=== PATIENT | female | born 1955 | race Two or more races ===

== ENCOUNTER 2017-12-17 07:10 | Outpatient (CLI) | payer OTHER | END 2017-12-17 07:20 | disposition home or self-care (01) | LOC: MAMO-SONO 07:10 | DX: Z12.31 Encounter for screening mammogram for malignant neoplasm of breast (principal); R92.1 Mammographic calcification found on diagnostic imaging of breast ==

== ENCOUNTER → 2018-06-19 | Outpatient (CLI) | payer OTHER | END | disposition home or self-care (01) | LOC: SONOGRAMA 09:26 → MAMO-SONO 10:15 | DX: N63.11 Unspecified lump in the right breast, upper outer quadrant (principal) ==

== ENCOUNTER 2019-01-01 07:21 | Outpatient (CLI) | payer OTHER | END 2019-01-01 07:26 | disposition home or self-care (01) | LOC: MAMO-SONO 07:21 | DX: Z12.31 Encounter for screening mammogram for malignant neoplasm of breast (principal); Z87.898 Personal history of other specified conditions; N60.11 Diffuse cystic mastopathy of right breast ==

== ENCOUNTER 2019-11-01 11:40 | Outpatient (CLI) | payer OTHER | END 2019-11-01 11:52 | disposition home or self-care (01) | LOC: NUCLEAR 11:40 | DX: M81.0 Age-related osteoporosis without current pathological fracture (principal); Z13.820 Encounter for screening for osteoporosis ==

== ENCOUNTER 2019-11-01 12:23 | Outpatient (CLI) | payer OTHER | END 2019-11-01 12:31 | disposition home or self-care (01) | LOC: RAD 12:23 | PROVIDERS: ATTEND Physical Medicine & Rehabilitation | DX: M54.2 Cervicalgia (principal) ==

== ENCOUNTER → 2021-10-24 12:48 | Outpatient (CLI) | payer OTHER | END | disposition home or self-care (01) | LOC: NUCLEAR 12:48 | PROVIDERS: ATTEND Family Medicine | DX: M81.0 Age-related osteoporosis without current pathological fracture (principal) ==

== ENCOUNTER 2023-03-23 11:16 | Emergency (ER) | payer OTHER ==
[~2023-03-23] VITALS: Ht 175.3 cm; Wt 86.6 kg
[2023-03-23] MEDS ORDERED: ECOTRIN81 MG PO (12:05)
[2023-03-23] MEDS ORDERED: RAZADYNE ER16 MG PO (12:05)
[2023-03-23] MEDS ORDERED: ATACAND16 MG PO (12:05)
[2023-03-23] MEDS ORDERED: CRESTOR5 MG PO (12:06)
[2023-03-23] MEDS ORDERED: PERCOGESIC EXT1 EACH PO (13:54)
== END 2023-03-23 14:19 | disposition home or self-care (01) ==
LOC: ER 11:17
DX: S52.571A Other intraarticular fracture of lower end of right radius, initial encounter for closed fracture (principal); W18.39XA Other fall on same level, initial encounter; Y93.89 Activity, other specified; Y92.018 Other place in single-family (private) house as the place of occurrence of the external cause; Y99.9 Unspecified external cause status; M19.041 Primary osteoarthritis, right hand

== ENCOUNTER 2023-03-31 05:10 | Day surgery (SDC) | payer OTHER ==
[2023-03-27 16:06] LABS: HEMATOCRIT 40.9 % (36.0-45.00); HEMOGLOBIN 13.8 g/dL (12.0-15.00); MEAN CELL VOLUME 95.9 fL (80.00-100.00); MEAN CORPUSCULAR HEMOGLOBIN 32.3 pg (27.00-32.0); MEAN CORPUSCULAR HGB CONC 33.6 g/dl (32.0-36.0); PLATELET COUNT 229 K/uL (150-450); RED BLOOD COUNT 4.26 M/uL (4.00-6.00); RED CELL DISTRIBUTION WIDTH 13.8 % (11.5-14.5)
[2023-03-27 16:13] LABS: PH,URINE 5.5 (5.0-8.0); URINE APPEARANCE Clear; URINE BILIRRUBIN Negative (NEGATIVE); URINE BLOOD Negative; URINE COLOR Yellow; URINE GLUCOSE Negative (NEGATIVE); URINE LEUKOCYTE Trace; URINE NITRATE Negative; URINE PROTEIN Negative (NEGATIVE); URINE UROBILINOGEN 0.2 E.U./dl
[2023-03-27 16:17] LABS: URINE BACTERIA 41.5 uL (0.0-1933); URINE EPITHELIAL CELLS 4.4 uL (0.0-38.8)
[2023-03-27 16:38] LABS: ALBUMIN 4.1 gm/dL (3.4-5.0); BILIRUBIN TOTAL 0.55 mg/dL (0.3-1.2); CALCIUM 9.5 mg/dL (8.5-10.1); CREATININE SERUM 0.57 mg/dL (0.55-1.02); GFR 105.48; GLOBULINA 3.4 G/DL (2.4-3.5); POTASSIUM 4.81 mEq/L (3.5-5.1); TOTAL PROTEIN 7.5 gm/dL (6.4-8.2)
[2023-03-27 16:55] LABS: INR 0.98; PARTIAL THROMBOPLASTIN TIME 29.6 SECONDS (22.0-34.0); PROTHROMBIN TIME 10.3 SECONDS (9.0-11.5)
[2023-03-27 17:04] LABS: COL ADP 87 SECONDS (56-102); COL EPI 201 SECONDS (82-175)
[~2023-03-31] VITALS: Ht 175.3 cm; Wt 86.6 kg
[~2023-03-31 05:10] MED LIST: ATACAND16 MG PO; CRESTOR5 MG PO; ECOTRIN81 MG PO; PERCOGESIC EXT1 EACH PO; RAZADYNE ER16 MG PO
[2023-03-31] MEDS ORDERED: BUPIVACAINE HCL/PF 0.5% 30ML ML ONE (07:15)
[2023-03-31] MEDS ORDERED: CEFAZOLIN SODIUM 1,000 MG VIAL ONE (07:16)
[2023-03-31] MEDS ORDERED: CEFAZOLIN SODIUM 1,000 MG VIAL IV ONE (08:15)
[2023-03-31] MEDS ORDERED: BUPIVACAINE HCL/PF 0.5% 30ML ML IJ ONE (08:15)
[2023-03-31] MEDS ORDERED: ISOPROPYL ALCOHOL 30 ML OUNCE TOP ONE (08:15)
== END 2023-03-31 13:45 | disposition home or self-care (01) ==
LOC: CIR.AMB 05:10
PROVIDERS: ATTEND Orthopaedic Surgery
DX: S52.571A Other intraarticular fracture of lower end of right radius, initial encounter for closed fracture (principal); Z20.822 Contact with and (suspected) exposure to COVID-19; I10 Essential (primary) hypertension
CPT/HCPCS: 25609; L8699

== ENCOUNTER 2023-05-01 08:06 | Outpatient (CLI) | payer OTHER | END 2023-05-01 08:12 | disposition home or self-care (01) | LOC: RAD 08:06 | PROVIDERS: ATTEND Orthopaedic Surgery | DX: S52.571D Other intraarticular fracture of lower end of right radius, subsequent encounter for closed fracture with routine healing (principal); M25.551 Pain in right hip; M25.552 Pain in left hip ==

== ENCOUNTER 2023-05-07 11:59 | Outpatient (CLI) | payer OTHER | END 2023-05-07 12:03 | disposition home or self-care (01) | LOC: RAD 11:59 | DX: R53.83 Other fatigue (principal) ==

== ENCOUNTER 2023-05-12 08:00 | Outpatient (CLI) | payer OTHER ==
[2023-05-12 09:46] LABS: ALBUMIN 3.9 gm/dL (3.4-5.0); BILIRUBIN TOTAL 0.58 mg/dL (0.3-1.2); CALCIUM 9.5 mg/dL (8.5-10.1); CREATININE SERUM 0.56 mg/dL (0.55-1.02); GFR 107.34; GLOBULINA 3.1 G/DL (2.4-3.5); MAGNESIUM 2.5 mg/dL (1.8-2.4); PHOSPHOROUS 3.3 mg/dL (2.5-4.9); POTASSIUM 4.98 mEq/L (3.5-5.1)
== END 2023-05-12 08:01 | disposition home or self-care (01) ==
LOC: LAB 08:00
PROVIDERS: ATTEND Orthopaedic Surgery
DX: E55.9 Vitamin D deficiency, unspecified (principal); M85.9 Disorder of bone density and structure, unspecified; E56.1 Deficiency of vitamin K; E21.3 Hyperparathyroidism, unspecified; E88.89 Other specified metabolic disorders; M81.8 Other osteoporosis without current pathological fracture

== ENCOUNTER 2023-10-07 11:52 | Outpatient (CLI) | payer OTHER | END 2023-10-07 11:58 | disposition home or self-care (01) | LOC: RAD 11:52 | DX: M54.50 Low back pain, unspecified (principal) ==

== ENCOUNTER 2023-11-05 13:20 | Outpatient (CLI) | payer OTHER | END 2023-11-05 13:21 | disposition home or self-care (01) | LOC: NUCLEAR 13:20 | PROVIDERS: ATTEND General Practice | DX: M81.0 Age-related osteoporosis without current pathological fracture (principal) ==

== ENCOUNTER 2023-12-12 11:07 | Outpatient (CLI) | payer OTHER | END 2023-12-12 11:15 | disposition home or self-care (01) | LOC: RAD 11:07 | PROVIDERS: ATTEND Specialist | DX: R05.9 Cough, unspecified (principal) ==

== ENCOUNTER 2024-02-09 09:11 | Inpatient (IN) | payer OTHER ==
[~2024-02-09] VITALS: Ht 175.3 cm; Wt 70.3 kg
--- NOTE | 2024-02-09 09:24 | NUR ---
PACIENTE FEMENINA ALERTA Y ORIENTADA X3, REFIERE VIDHYA TOS HACE VARIOS SUAZO.
--- NOTE | 2024-02-09 11:52 | NUR ---
SE ORIENTA A PACIENTE SOBRE ORDENES MEDICAS Y SE COLECTAN MUESTRAS DE LABORATORIO BAJO MEDIDAS ASEPTICAS.
[2024-02-09 11:58] LABS: HEMATOCRIT 43.2 % (36.0-45.00); HEMOGLOBIN 14.5 g/dL (12.0-15.00); MEAN CELL VOLUME 98.2 fL (80.00-100.00); MEAN CORPUSCULAR HGB CONC 33.5 g/dl (32.0-36.0); PLATELET COUNT 280 K/uL (150-450); RED BLOOD COUNT 4.39 M/uL (4.00-6.00); RED CELL DISTRIBUTION WIDTH 14.2 % (11.5-14.5)
[2024-02-09] MEDS ORDERED: CEFTRIAXONE SODIUM 2,000 MG VIAL IV STA ×2 (13:30→14:03)
--- NOTE | 2024-02-09 13:52 | NUR ---
SE CANALIZA A PACIENTE BAJO MEDIDAS ASEPTICAS Y SE ADMINISTRA MEDICAMENTO JODI ORDEN MEDICA. SE ENTREGA ENVASE PARA U/A Y SE NOTIFICA CT.
[2024-02-09 14:38] LABS: URINE APPEARANCE Turbid; URINE BILIRRUBIN Small (NEGATIVE); URINE BLOOD Moderate; URINE COLOR Orange; URINE GLUCOSE Negative (NEGATIVE); URINE KETONE 15 (NEGATIVE); URINE LEUKOCYTE Moderate; URINE NITRATE Negative; URINE PROTEIN Trace (NEGATIVE)
[2024-02-09 14:39] LABS: URINE BACTERIA 3193.2 uL (0.0-1933); URINE CAST 1.91 uL (0.0-1.40); URINE EPITHELIAL CELLS 59.6 uL (0.0-38.8); URINE RBC 90.7 uL (0.0-20.8); URINE WBC 1557.6 uL (0.0-23.2)
[2024-02-09 14:51] LABS: URINE CRYSTALS MODERATE /HPF; URINE MUCUS SCANT
[2024-02-09 16:39] LABS: ALBUMIN 3.7 gm/dL (3.4-5.0); BILIRUBIN TOTAL 0.69 mg/dL (0.3-1.2); CALCIUM 9.9 mg/dL (8.5-10.1); CREATININE SERUM 0.4 mg/dL (0.55-1.02); GFR 158.26; GLOBULINA 3.5 G/DL (2.4-3.5); POTASSIUM 4.37 mEq/L (3.5-5.1); TOTAL PROTEIN 7.2 gm/dL (6.4-8.2)
[2024-02-09] MEDS ORDERED: IPRATROPIUM/ALBUTEROL SULFATE 3 ML AMPUL.NEB IH SCH (20:00)
[2024-02-09] MEDS ORDERED: LEVALBUTEROL HCL 1.25 MG/3 ML SOLUTION IH SCH (20:59)
[2024-02-09] MEDS ORDERED: IPRATROPIUM BROMIDE 0.5 MG/2.5 ML AMPUL.NEB IH SCH (21:00)
[2024-02-09] MEDS ORDERED: GUAIFENESIN/DEXTROMETHORPHAN 10ML BLIST.PACK PO SCH (21:05)
[2024-02-09] MEDS ORDERED: SODIUM CHLORIDE FOR INHALATION 1 VIAL.NEB IH SCH (21:14)
[2024-02-09] MEDS ORDERED: ACETAMINOPHEN 500 MG GEL..CAP PO PRN (21:15)
[2024-02-09] MEDS ORDERED: 0.9 % SODIUM CHLORIDE 1,000 ML IV SCH (21:15)
[2024-02-09 23:15] LABS: ABG PH 7.433 (7.35-7.45)
[2024-02-09 23:17] LABS: ABG PO2 54.6 mmHg (80-100); BASE EXCESS 0.2 mmol/l; BICARBONATE 24.1 mmol/l (23-25); Tco2 25.3 mmol/l; o2 21 %
[2024-02-09 23:18] LABS: allen test SATISFACTORY; puncture site RADIAL RIGHT
[2024-02-09 23:19] LABS: SaO2 89.1 %
[2024-02-09 23:27] LABS: INR 0.99; PARTIAL THROMBOPLASTIN TIME 28.8 SECONDS (22.0-34.0); PROTHROMBIN TIME 10.8 SECONDS (9.0-11.5)
[2024-02-10] VITALS (7 sets, daily range): BP systolic 117–147; BP diastolic 71–81; O2SAT 90–99
[2024-02-10] MEDS ORDERED: ENOXAPARIN SODIUM 40 MG/0.4 ML SYRINGE SUBCUTANEO SCH (09:00)
[2024-02-10] MEDS ORDERED: CEFTRIAXONE SODIUM 2,000 MG in 0.9 % SODIUM CHLORIDE 100 ML IV SCH (09:00)
[2024-02-10] MEDS ORDERED: CANDESARTAN CILEXETIL 16 MG TABLET PO SCH (09:00)
[2024-02-10] MEDS ORDERED: ATORVASTATIN CALCIUM 10 MG TABLET PO SCH (09:00)
[2024-02-10] MEDS ORDERED: PATIENTS OWN MEDICATION (MEDICAMENTO EN PISO) PO SCH ×2 (09:00)
[2024-02-10] MEDS ORDERED: LEVALBUTEROL HCL 1.25 MG/3 ML SOLUTION IH SCH (12:00)
[2024-02-10] MEDS ORDERED: FAMOTIDINE/PF 20 MG/2 ML VIAL IV SCH (17:00)
[2024-02-11] VITALS (10 sets, daily range): BP systolic 130–139; BP diastolic 66–80; O2SAT 92–98
[2024-02-11 07:50] LABS: HEMATOCRIT 34.3 % (36.0-45.00); HEMOGLOBIN 11.7 g/dL (12.0-15.00); MEAN CELL VOLUME 98.9 fL (80.00-100.00); MEAN CORPUSCULAR HEMOGLOBIN 33.7 pg (27.00-32.0); PLATELET COUNT 205 K/uL (150-450); RED BLOOD COUNT 3.47 M/uL (4.00-6.00); RED CELL DISTRIBUTION WIDTH 13.7 % (11.5-14.5)
[2024-02-11 10:26] LABS: ABG PO2 77.5 mmHg (80-100); ABG pCO2 52.5 mmHg (35-45); BASE EXCESS 5.6 mmol/l; BICARBONATE 31.8 mmol/l (23-25); Tco2 33.4 mmol/l; o2 21 %
[2024-02-11 10:27] LABS: allen test SATISFACTORY; puncture site RADIAL RIGHT
[2024-02-12 00:12] VITALS: O2SAT 97
[2024-02-12 01:40] VITALS: BP 165/84; O2SAT 97
[2024-02-12 03:55] VITALS: O2SAT 96
[2024-02-12 06:46] LABS: HEMATOCRIT 34.3 % (36.0-45.00); HEMOGLOBIN 11.3 g/dL (12.0-15.00); MEAN CELL VOLUME 100.1 fL (80.00-100.00); PLATELET COUNT 182 K/uL (150-450); RED BLOOD COUNT 3.42 M/uL (4.00-6.00); RED CELL DISTRIBUTION WIDTH 13.6 % (11.5-14.5)
[2024-02-12 09:01] VITALS: O2SAT 98
[2024-02-12 09:16] VITALS: BP 168/102; O2SAT 94
== END 2024-02-12 15:25 | disposition home or self-care (01) | DRG 315 ==
LOC: ER 09:13 → MEDI 21:42
PROVIDERS: General Practice; ADMIT Student in an Organized Health Care Education/Training Program; ATTEND Student in an Organized Health Care Education/Training Program
PROC: 4A033R1 Measurement of Arterial Saturation, Peripheral, Percutaneous Approach (ICD-10-PCS; principal; 2024-02-09)
PROC: BW25ZZZ Computerized Tomography (CT Scan) of Chest, Abdomen and Pelvis (ICD-10-PCS; 2024-02-09)
PROC: 3E0F7GC Introduction of Other Therapeutic Substance into Respiratory Tract, Via Natural or Artificial Opening (ICD-10-PCS; 2024-02-10)
PROC: 4A12X4Z Monitoring of Cardiac Electrical Activity, External Approach (ICD-10-PCS; 2024-02-10)
DX: R09.89 Other specified symptoms and signs involving the circulatory and respiratory systems (principal); G12.21 Amyotrophic lateral sclerosis; S52.501A Unspecified fracture of the lower end of right radius, initial encounter for closed fracture; N39.0 Urinary tract infection, site not specified; R65.10 Systemic inflammatory response syndrome (SIRS) of non-infectious origin without acute organ dysfunction; R05.9 Cough, unspecified; M12.531 Traumatic arthropathy, right wrist; R09.02 Hypoxemia; Z20.822 Contact with and (suspected) exposure to COVID-19; Z74.01 Bed confinement status; R06.89 Other abnormalities of breathing

== ENCOUNTER 2024-02-24 14:38 | Outpatient (CLI) | payer OTHER | END 2024-02-24 14:45 | disposition home or self-care (01) | LOC: RAD 14:38 | DX: S90.01XA Contusion of right ankle, initial encounter (principal); S90.31XA Contusion of right foot, initial encounter ==

== ENCOUNTER 2024-03-24 13:20 | Outpatient (CLI) | payer OTHER | END 2024-03-24 13:26 | disposition home or self-care (01) | LOC: RAD 13:20 | PROVIDERS: ATTEND Neuromusculoskeletal Medicine, Sports Medicine | DX: S82.841A Displaced bimalleolar fracture of right lower leg, initial encounter for closed fracture (principal); X58.XXXA Exposure to other specified factors, initial encounter; Y93.9 Activity, unspecified; Y92.9 Unspecified place or not applicable; Y99.9 Unspecified external cause status ==

== ENCOUNTER → 2024-04-17 | Emergency (ER) | payer OTHER ==
[~2024-04-17] VITALS: Wt 68.0 kg
== END | disposition expired ==
LOC: ER 12:41
DX: I46.9 Cardiac arrest, cause unspecified (principal)